=== PATIENT | female | born 1970 | race Caucasian/White ===

== ENCOUNTER 2022-01-05 09:52 | Day surgery (SDC) | payer OTHER, SELFPAY ==
[2022-01-05] VITALS (19 sets, daily range): BP systolic 92–152; BP diastolic 54–89; PULSE 68–98; RESP 14–16; TEMP 36.4–37.4; O2SAT 85–100; BMI 30.6
--- NOTE | 2022-01-05 10:01 | EKG12_ITS ---
Test Reason : Blood Pressure : / mmHG Vent. Rate : 067 BPM Atrial Rate : 067 BPM P-R Int : 136 ms QRS Dur : 084 ms QT Int : 384 ms P-R-T Axes : 016 029 030 degrees QTc Int : 405 ms Sinus rhythm with Premature supraventricular complexes and Premature ventricular complexes or Fusion complexes Otherwise normal ECG No previous ECGs available Confirmed by BELINDA GONZALEZ, ENRIQUE ([id number]), video news editor DEBBIE MCCRAY ([id number]) on 01/12/2022 11:00:13 AM Referred By: Logan Art Confirmed By:FLAKO TREVINO MD
[2022-01-05 10:29] LABS: Internal QC Validated? YES +Cl - CLEAR BKGD; Pregnancy, Urine Negative Negative
[2022-01-05] MEDS: Lactated Ringers 1,000 ML 15 ML IV (10:57)
--- NOTE | 2022-01-05 11:23 | HP.PCM_ITS ---
HPI - General HPI Narrative ABIEL JERRY, is a 51 F who presents for R DRF ORIF. Marked. Declined block. Questions answered. No changes to H and P. ADDENDUM by Dr. Logan Art MD on 01/04/22 at 1434 Assessment and Plan Assessment and Plan (1) Fracture of right distal radius: ?Status:?Acute ?Comment: increased risk of infection, delayed union and other complications from smoking 01/04/22 1434 <Electronically signed by Logan Art MD> Date Logan Art MD cc: ? ~* Signed Intake Vital Signs ? 01/05/2208:08 Height 5 ft 4 in Weight: 178 lb BMI 30.5 Intake Visit Reasons:?RIGHT WRIST Is patient in pain?: Yes Pain scale (1-10): 5 Allergies No Known Allergies Allergy (Unverified 01/04/22 08:08) Medications acetaminophen 500 mg tablet (Tylenol Extra Strength) 500 mg PO Q6H PRN 01/04/22 [History Confirmed 01/04/22] PFSH Medical History?(Updated 01/04/22 @ 08:28 by Logan Art MD) Fracture of right distal radius Family History?(Updated 01/04/22 @ 08:12 by Ginger Thomas) Sister Breast cancerGrandmother DiabetesFather Liver cancerGrandfather Brain cancer Social History?(Updated 01/04/22 @ 08:10 by Ginger Thomas) Smoking Status:? Current every day smoker alcohol intake:? current HPI RIGHT WRIST Details: Parts of this documentation were recorded by a scribe, this documentation accurately reflects the service provided and the decisions made by me, Dr. Logan Art MD 01/04/22 0805. ABIEL JERRY is a 51 year old F here today for right wrist, distal radius fracture, December 19 about 2 weeks ago. Tripped carrying [employer], R[employer]. No prior injuries to the wrist. Seen at [facility] in [place], about an hour away, [facility] She has no medical problems.? No anticoagulation.? She was ready for surgery but they had to cancel due to telling her that she is self-pay because they do not take her insurance. Ortho Exam General General: Yes no acute distress Neurologic: Yes alert and Yes oriented x3 Psychologic: Yes reasonable and appropriate Right Wrist/Hand Skin/Wound: Yes CDI, Yes Swelling, Yes Ecchymosis, Yes nail intact and Yes capillary refill normal Right Wrist: Yes TTP Fracture site Motor: EPL: 5, FDP-2: 5, 1st Dorsal Interosseous: 5 and APB: 5 Sensation: Radial: I, Ulnar: I and Median: I WRIST: Forearm compartments are soft no pain at the elbow or hand.? There is a deformity of the distal radius site pain there.? Good radial pulse. Left Wrist/Hand Skin/Wound: Yes Swelling and Yes Ecchymosis Supplemental Info Radiographs of the right distal radius were reviewed PA lateral and oblique.? This shows intra-articular distal radius fracture with dorsal tilt on the lateral radiograph as well as flattening of the radial inclination slight gap of the joint no obvious step.? There is dorsal displacement of the distal fragment. Coding Level of Care Code Off vis,new,level 4 Diagnoses Fracture of right distal radius? S52.501A Time Spent (min) 45 Assessment and Plan Assessment and Plan (1) Fracture of right distal radius: ?Status:?Acute ?Plan: 51-year-old female intra-articular displaced dorsally angulated distal radius fracture on the dominant side.? Overall my recommendation for this would be open reduction internal fixation with volar plating.? The other option of nonoperative treatment with 6 weeks of immobilization would likely result in increased risks of stiffness wrist instability and long-term chance of osteoarthritis.? That being said surgery does not have its onset of unique risks as well.? We explained the surgery to her volar incision volar plating 2 weeks deal the incision 3 to 4 months to regain the strength and range of motion however given the risks of both forms of treatment I think this would generally be recommended in the literature for open reduction internal fixation to correct the alignment.? I did let her know that we are already 2 weeks out this may become more difficult given the callus formation we will have to mobilize the fracture and takedown callus.? She understands signed the consent form for right distal radius open reduction internal fixation and we will try to get this done this week. Pros and cons risks and benefits were discussed with the patient including but not limited to infection, pain, stiffness, bleeding, damage to surrounding structures, neurovascular injury, recurrence or retear, failure or wear of hardware or fixation, instability, fracture, deep vein thrombosis and pulmonary embolism, anesthetic risks, tendon irritation or rupture, patient dissatisfaction, need for further surgery and other risks.? Patient understood and wished to proceed with surgery, and signed the informed consent documentation. PFSH Medical History Alcohol use Fracture of right distal radius History of edema Non-smoker Home Medications acetaminophen 500 mg tablet (Tylenol Extra Strength) 500 mg PO Q6H PRN Pain 01/04/22 [History Last Taken Unknown] Allergy/AdvReac Type Severity Reaction Status Date / Time banana AdvReac Upset Verified 01/05/22 10:31 Stomach Family History (Updated 01/04/22 @ 08:12 by Ginger Thomas) Sister Breast cancer Grandmother Diabetes Father Liver cancer Grandfather Brain cancer Surgical History (Updated 01/04/22 @ 15:15 by Rosanne Paz) No history of previous surgery Social History (Updated 01/04/22 @ 08:10 by Ginger Thomas) Smoking Status: Never smoker alcohol intake: current Vital Signs Vital Signs Vital Signs: 01/05/22 10:33 01/05/22 10:33 Temperature 99.3 F H Temperature Source Temporal Pulse Rate 68 Respiratory Rate 16 Respiratory Pattern Normal Blood Pressure 135/72 H Blood Pressure Mean 93 Blood Pressure Source Monitor Blood Pressure Position Semi-Fowlers Blood Pressure Location Left Arm Pulse Ox 100 Oxygen Delivery Method Room Air Weight Weight: 178 lb 9.191 oz Body Mass Index (BMI) 30.6 Results Lab / Micro Data Labs: Laboratory Results - last 24 hr 01/05/22 10:18: Urine Test Negative
[2022-01-05] MEDS: Cefazolin 2 GM in 0.9% Normal Saline 100 ML IV (11:52)
--- NOTE | 2022-01-05 11:56 | RAD_ITS ---
STUDY: X-RAY - RIGHT WRIST REASON FOR EXAM: Female, 51 years old. FX TECHNIQUE: 2 view(s) of the wrist were obtained. COMPARISON: None. FINDINGS: Intraoperative imaging provided for ORIF of the distal radial fracture. There is good alignment. RAD/Wrist 2 Views IMPRESSION: Intraoperative imaging provided for ORIF of the distal radial fracture. There is good alignment. Electronically Signed: Bjorn Sutherland MD at 14:23 EST ,
[2022-01-05] MEDS: Bupivacaine 0.25% 30 ML Vial (13:45)
--- NOTE | 2022-01-05 14:07 | OP.PCM_ITS ---
Problems Associated Problem List Diagnoses (1) Fracture of right distal radius: Report of Operation Date of Procedure: 01/05/22 Pre-Operative Diagnosis: Right distal radius fracture Post-Operative Diagnosis: Right distal radius fracture Surgery/Procedure Performed:: Right distal radius open reduction internal fixation Surgeon: Logan Art Type of Anesthesia: General and Local Anesthesiologist: Cedrick Culver Estimated Blood Loss (mL): 50 Description of Procedure: Patient was brought to the operating room theater. They were placed supine on the operating room table. All bony prominences appropriately padded. SCDs on the legs. 2 g of IV Ancef administered prior to the start of the case. General anesthesia induced. Patient bed turned 90 degrees. Hand table to the patient's right side. Tourniquet applied to the upper extremity appropriately padded. Upper extremity prepped and draped in the usual sterile fashion with chlorhexidine-based prep solution allowing over 3 minutes drying time prior to draping. Preoperative timeout performed to confirm the site the patient and the surgery. I began by exsanguinating the limb with a sterile Esmarch elevating the limb and inflating the tourniquet to 250 mmHg. I made a standard volar incision to the distal radius in line with the FCR tendon. I carried the dissection down through skin and subcutaneous tissue achieved meticulous hemostasis. I incised the tendon sheath of the FCR retracted this radially and incised the subcu sheath. I retracted the flexor pollicis longus ulnarly. Identified pronator quadratus. I cauterized a number of crossing vessels. I used bipolar cautery. I made a L-shaped incision in the pronator quadratus elevating this from radial to ulnar. Identified the fracture site. This was quite distal. Is quite dorsally displaced the fracture fragment. I did take down quite a bit of callus there mobilized the fracture fragments. There were at least 4 distal fragments. There is a longitudinal split in the radial styloid fragment minimally displaced. There is also a split between the ulnar and radial columns. I used a 1.6 mm smooth K wire to realign the radial side for a radial styoid pin, to try to get the radial column out to length. I achieved a neutral volar tilt on the lateral radiograph. I selected a Synthes precontoured volar plate 3 proximal holes narrow. I placed the plate on the volar surface. I secured this to the bone using 2.0 mm drill bit in the oblong hole. I then selected a 2.7 mm diameter by 12 mm long screw to affix the plate to the bone. Achieved appropriate compression. I used direct manipulation direct visualization as well as intraoperative fluor oscopy to realign the fracture. There is some mild comminution of the volar rim. This was well aligned and well supported by the plate. I then inserted the fully threaded cortical locking screws distally using a 1.8 mm drill and 2.4 millimeter screws 2 in the ulnar fragment and 2 in the radial fragment. I then used locking screws in the proximal 2 holes of the plate. Final radiographs were taken and saved onto the system. Full range of motion of the wrist was achieved without crepitus. True lateral x-ray was taken of the wrist including PA and lateral radiographs to confirm no screw penetration in appropriate alignment. Tourniquet let down hemostasis achieved. Wound thoroughly irrigated. Subcutaneous tissue closed with 2-0 Vicryl sutures and skin with 3-0 Monocryl. 8 cc of quarter percent Marcaine without epinephrine was instilled in and around the soft tissues. Skin cleaned with wet and dry dressing followed application of Steri-Strips 4 x 4 gauze abdominal pad dressing and sterile cast padding. Volar prefabricated fiberglass splint was then applied and overwrapped with 4 inch Ashok bandage. Patient woken up from general anesthetic transferred off the operating room ta ble and taken to postanesthetic care unit in stable condition. All sponge needle instrument counts were correct. Plan for the patient gentle range of motion of the fingers thumb and elbow elevate discharged home when they are comfortable and follow-up in clinic in 2 days time. Appropriate narcotic counseling given. Complications none Admit VTE Documentation VTE Present on Admission: No VTE Mechan Device Prophylaxis: SCD's VTE Pharm Prophylaxis ordered?: No Reason prophylaxis not ordered:: Treatment Not Indicated Procedures Musculoskeletal [id number]: Other Procedure See Report
--- NOTE | 2022-01-05 14:15 | DCINST_ITS ---
Discharge Instructions Diet Discharge Diet: No restrictions Activity Lifting Restrictions: no lifting, typing and writing only Dressing / Incision Call your doctor if your incision/area has: Continuous Slow Oozing, Sudden Increased Bleeding, Increased Pain/ Swelling, Increased Redness, Foul Smelling Discharge and Swelling at the incision site Remove Dressing in: leave in place till F/U Follow Up Care Please Follow Up With: Logan Art MD When: 2 days Test Results: Test results from this visit will be discussed in further detail at your follow- up appointment, if applicable. Discharge Plan Admission Attending Provider: Logan Art Primary Care Provider: Care Physician,Trang Primary Discharge Orders/Prescriptions Prescriptions: New oxycodone-acetaminophen [Endocet] 5-325 mg tablet 1 tab PO Q4H MDD 6 PRN (Reason: pain) 7 Days Qty: 30 0RF No Action acetaminophen [Tylenol Extra Strength] 500 mg tablet 500 mg PO Q6H PRN (Reason: Pain) Referrals / Follow Up: Logan Art MD [Med Staff - Active Staff] - Care Physician,No Primary [Primary Care Provider] - Disposition Disposition (needs filled in before D/C Order can be placed): Home, Self Care
== END 2022-01-05 18:31 | disposition home or self-care (01) ==
LOC: SDC 10:00 → AC 10:00
PROVIDERS: Anesthesiology; Referring Provider Orthopaedic Surgery Sports Medicine; Visit Provider Orthopaedic Surgery Sports Medicine
PROC: (CPT 25608; principal; 2022-01-05 11:10)
DX: S52.571A Other intraarticular fracture of lower end of right radius, initial encounter for closed fracture (principal); W01.0XXA Fall on same level from slipping, tripping and stumbling without subsequent striking against object, initial encounter
CPT/HCPCS: 25608; 01830; 73090; 73100; 76000; 81025; 93005; C1713; J7120; J2405

== ENCOUNTER 2022-03-24 08:30 | Outpatient (RCR) | payer OTHER, SELFPAY ==
--- NOTE | 2022-01-20 09:15 | HP.OTEVAL ---
Patient's Visit Information NISHA JERRY is a 51 year old F, referred to Occupational Therapy by Dr. Logan Art MD, with a diagnosis of R distal radius fx. 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 Job responsibilities are mostly typing and calls. Lives with boyfriend, he can help her as needed with opening things, lifting things around the house, etc. She reports she lives ~1 hr away from the clinic (has to go here for insurance reasons) and would prefer scheduling 1x/week because of this. She is going on vacation next week, will schedule treatment starting week of 02/01/22. - ADLs Comments: indep with ADL's, reports boyfriend helps open some containers such as water bottle tops - Pain R wrist 0 - Objective R handed - dominant. slightly swollen, minimal bruising. wearing the brace all night and sometimes during the day - reports the brace doesn't really change how it feels. ROM: R wrist flexion: 20 deg. R wrist extension: 15. Radial deviation 15. Ulnar deviation: 15. supination: ~10 deg past neutral. pronation: WNL. L wrist flexion: 90. L wrist extension: 50. L radial deviation: 30. L ulnar deviation: 33. supination/pronation: within normal limits. L hand interactive account manager/pinch strength: L interactive account manager: 47. Tripod pinch: 6. Lateral: 6. Pincer: 6. wrist measurement for edema: R wrist - 6.75 inches; R MCP 7.5 inches - Goals Goal:: Pt will be able to participate in minimally resistive activities (lifting, opening) of less than 5 pounds without reports of pain or discomfort. Goal:: Pt will improve R wrist ROM to within normal limits as assessed using wrist goniometer. Goal:: Pts overall R wrist edema will be reduced by .5 inch as measured by circumference of R wrist. Goal:: Pt will be indep with 2 strategies for densensitization to complete at home. Goal:: Pt will be indep with at least 2 stategies for scar management and healing. - Rehabilitation General Assessment: Nisha is ~4 weeks out from initial fracture and ~2 weeks from ORIF surgery to R distal radius. She presents with 0/10 pain, minimal swelling, and denies concerns for sensitivity at this time. She is somewhat stiff in the R wrist region but improved with manual therapy and gentle stretching. She's agreeable to continuing outpatient POC. Rehabilitation Potential: Good - Anticipated Interventions A/AAROM/PROM, Strengthening, Edema Control, Scar Care, Massage, Desensitization, Sensory Retraining, Modalities, Orthoses - Visit Plan Frequency: 1x/Week Duration: 6 Weeks General Plan: Plan to see Nisha 1x/week per her request (lives ~1 hr away) for 6 weeks and progress her home progrom with range of motion, strengthening, scar massage and densensitization. Provided education on gentle ROM and massage to complete at home and issued handouts for compression glove and comfort cool brace - ed that we would follow up regarding those items in the clinic at future visits. TEXT: Thank you for the opportunity to evaluate your patient. For Medicare and Medicare HMO plans, please review the plan of care and approve it. It will need to be FAXED BACK to us at [phone] for Medicare purposes. Please let me know if there are questions or concerns regarding this plan of care. Physician Signature: Date:
--- NOTE | 2022-02-10 11:31 | OTREVAL_ITS ---
Dr. Logan Art MD, It has been my pleasure to treat ABIEL JERRY over the last 2 visits for R distal radius fx. Please see the progress note below for an update on the occupational therapy plan of care! Subjective: pt arrives 4 weeks s/p from a right distal radius fx. pt is able to use her right hand for writing and eating. she is performing her ADLs with some difficulty but able to get it done. Objective/Function: right wrist 40/35* a increase from15/20*. supination 55* a increase from 10*. pts ROM is coming and will initiate PROM and over pressure stretch at week 6 along with light strengthening as indicates. Plan Frequency: 1x/Week Duration: 6 Weeks Visits in this POC: 12 Plan: imitate PROM at weeks 6 and light strengthening. along with PROM for end range stretch at 6 weeks Goals - Goals Patient Goals: Regain Mobility, Regain Strength, Decrease Pain, Decrease Swelling/Stiffness, Improve Fine Motor Skills, Use Hand/Wrist/Arm Normally Again, Increase ROM, Be More Independent in ADLS, Decrease Sensitivity, Resume Former Household Responsibilities (Cooking,Cleaning,Yard, etc.) Goal:: Pt will be able to participate in minimally resistive activities (lifting, opening) of less than 5 pounds without reports of pain or discomfort. Goal:: Pt will improve R wrist ROM to within normal limits as assessed using wrist goniometer. Goal:: Pts overall R wrist edema will be reduced by .5 inch as measured by circumference of R wrist. Goal:: Pt will be indep with 2 strategies for densensitization to complete at home. Goal:: Pt will be indep with at least 2 stategies for scar management and heali ng. Anticipated Interventions Anticipated Interventions: A/AAROM/PROM, Strengthening, Edema Control, Scar Care, Massage, Desensitization, Sensory Retraining, Modalities, Orthoses Please do not hesitate to contact me at [phone] by phone or if you have questions or concerns regarding this new plan of care! Sincerely, Imani Hubbard, OTR/L, CHT
--- NOTE | 2022-03-24 09:13 | HP.OTDCSUM_ITS ---
It has been my pleasure to treat ABIEL JERRY under orders from Dr. Logan Art MD, for the diagnosis of R distal radius fx for a total of 7 visit(s). Please see the following information for a summary of their discharge status. % Improvement: 90 Objective/Function: right wrist 50/40. right forearm supination/pronation WNL. right pharmacy technician infusion strength 30#. right lateral pinch 8#. right tripod pinch 6#. pt has met OT goals and at this time is D/C Patient Goals: Regain Mobility, Regain Strength, Decrease Pain, Decrease Swelling/Stiffness, Improve Fine Motor Skills, Use Hand/Wrist/Arm Normally Again, Increase ROM, Be More Independent in ADLS, Decrease Sensitivity, Resume Former Household Responsibilities (Cooking,Cleaning,Yard, etc.) Goal:: Pt will be able to participate in minimally resistive activities (lifting, opening) of less than 5 pounds without reports of pain or discomfort. Goal:: Pt will improve R wrist ROM to within normal limits as assessed using wrist goniometer. Goal:: Pts overall R wrist edema will be reduced by .5 inch as measured by circumference of R wrist. Goal:: Pt will be indep with 2 strategies for densensitization to complete at home. Goal:: Pt will be indep with at least 2 stategies for scar management and healing. Plan: D/C with [facility] Discharge Comments: pt was seen for 8 OT sessions following a right distal radius fx. pt has made great gains with her ROM and strength. pt has met OT goals and at this time is D/c with [facility]. If there are questions or concerns regarding this patient's occupational therapy, please fell free to call me at [phone]. Thank you for the referral of this patient. Sincerely, Imani Hubbard, OTR/L, CHT
== END 2022-03-24 19:00 | disposition home or self-care (01) ==
LOC: OT 08:30
PROVIDERS: Referring Provider Orthopaedic Surgery Sports Medicine; Visit Provider Orthopaedic Surgery Sports Medicine
DX: S52.501D Unspecified fracture of the lower end of right radius, subsequent encounter for closed fracture with routine healing (principal)
CPT/HCPCS: 97110; 97165; 97530